=== PATIENT | male | born 1980 | race Caucasian/White ===

== ENCOUNTER 2020-12-22 02:34 | Emergency (ER) | payer MEDICARE, OTHER ==
[~2020-12-22] VITALS: Ht 182.9 cm; Wt 72.6 kg
[2020-12-22 03:32] LABS: HEMOGLOBIN 11.2 gm/dl (14.0-17.5); RED BLOOD COUNT 3.85 M/UL (4.20-5.50)
[2020-12-22 03:51] LABS: BUN/CREATININE RATIO 17 (0-10)
[2020-12-23 09:13] LABS: HBSAG SCREEN Negative (Negative); HEP A AB, IGM Negative (Negative); HEP B CORE AB, IGM Negative (Negative); HEP C VIRUS AB >11.0 (0.0-0.9)
== END 2020-12-22 15:35 | disposition home or self-care (01) ==
LOC: ER1 02:34
PROVIDERS: Emergency Medicine
DX: A41.9 Sepsis, unspecified organism (principal); H60.91 Unspecified otitis externa, right ear; H60.11 Cellulitis of right external ear; Z20.822 Contact with and (suspected) exposure to COVID-19
CPT/HCPCS: 70470; 71045; 80053; 80074; 80307; 81001; 82550; 82553; 83605; 83690; 83735; 83874; 84484; 85025; 85610; 85652; 85730; 86140; 87040; 87070; 87077; 87186; 87205; 93005; 96374; 96375; 96376; 99285; G0480; J0692; J2250; J3370; J7030; J7070; Q9967; U0002